=== PATIENT | female | born 1975 | race Caucasian/White ===

== ENCOUNTER 2017-01-27 16:00 | Emergency (ER) | payer OTHER ==
[~2017-01-27] VITALS: Ht 160 cm; Wt 86.3 kg
[2017-01-27 16:18] VITALS: BP 118/87
--- NOTE | 2017-01-27 16:38 | NUR ---
PT AMB TO BED 7
--- NOTE | 2017-01-27 16:38 | NUR ---
PATIENT AMBULATED TO BED 7 AT THIS TIME,
[2017-01-27] MEDS ORDERED: SUMAtriptan 6 MG/0.5 ML VIAL SUBQ ONE (16:45)
[2017-01-27] MEDS ORDERED: oxyCODONE/APAP 5/325 MG 1 TAB TAB PO ONE (16:45)
[2017-01-27] MEDS ORDERED: ONDANSETRON 4 MG ODT PO ONE (16:45)
--- NOTE | 2017-01-27 16:45 | NUR ---
PATIENT PRESENTS TO ED WITH C/O HEAD ACHE SINCE 01/23/17 WITH N/V; PER PT HEAVY PERIOD RESULTING IN LOW FE;HX OF MIGRAINES.SKIN IS PINK/WARM/DRY; AAOX4 WITH EVEN AND STEADY GAIT; LUNGS CLEAR BL; HR EVEN AND REGULAR; PT DENIES ANY FEVER, CP, SOB, OR COUGH AT THIS TIME; PATIENT STATES PAIN OF 10/10 AT THIS TIME; PATIENT POSITIONED FOR COMFORT; HOB ELEVATED; BEDRAILS UP X2; BED DOWN. ER MD MADE AWARE OF PT STATUS.
--- NOTE | 2017-01-27 17:04 | NUR ---
VERBAL ORDER OF 4 LPM VIA NC BY VO.
[2017-01-27] MEDS ORDERED: NACL 0.9% 1,000 ML IV ONE (17:05)
--- NOTE | 2017-01-27 17:35 | NUR ---
PT VERBALIZES DECREASE OF PAIN FROM HEADACHE FROM10/10 TO 0/10;NO MOANING/FACIAL GRIMMACING NOTED;WILL CONTINUE TO MONITOR PT.
[2017-01-27 18:54] VITALS: BP 122/74
--- NOTE | 2017-01-27 18:54 | NUR ---
Patient discharged with v/s stable. Written and verbal after care instructions given and explained. Patient alert, oriented and verbalized understanding of instructions. Ambulatory with steady gait. All questions addressed prior to discharge. ID band removed. Patient advised to follow up with PMD. Rx of FIORICET given. Patient educated on indication of medication including possible reaction and side effects. Opportunity to ask questions provided and answered.
== END 2017-01-27 18:54 | disposition home or self-care (01) ==
LOC: MED 16:00
DX: G44.209 Tension-type headache, unspecified, not intractable (principal); Z88.0 Allergy status to penicillin
CPT/HCPCS: 96360; 96372; 99284; J3030; J7030; S0119

== ENCOUNTER 2017-01-28 12:07 | Emergency (ER) | payer MEDICAID, OTHER ==
[~2017-01-28] VITALS: Ht 160 cm; Wt 86.4 kg
[2017-01-28 12:13] VITALS: BP 123/76
--- NOTE | 2017-01-28 12:33 | NUR ---
Patient taken from ED lobby to CT scan via wheelchair by adriano.
--- NOTE | 2017-01-28 13:01 | NUR ---
Patient ambulated to bed 5. RN evaluating patient at bedside.
--- NOTE | 2017-01-28 13:16 | NUR ---
41F BIB SELF C/O 03/24 LEFT SIDED HEADACHE X 5 DAYS; PATIENT DENIES ANY RECENT INJURIES TO HEAD; AAOX4 WITH EVEN AND STEADY GAIT; PERRLA BL EYES; PT SPEAKING IN FULL SENTENCES; LUNGS CLEAR BL; RR ARE EVEN AND UNLABORED; DENIES N/V/D; SKIN IS PINK/WARM/DRY; ; PT DENIES ANY CP OR SOB AT THIS TIME; VSS; PATIENT POSITIONED FOR COMFORT; HOB ELEVATED; BED DOWN; ER MD MADE AWARE OF PT STATUS; ALL NEEDS MET AT THIS TIME; WILL CONTINUE TO MONITOR
--- NOTE | 2017-01-28 13:22 | NUR ---
Dr. Chin evaluating patient at bedside.
[2017-01-28] MEDS ORDERED: NACL 0.9% 1,000 ML IV ONE (13:59)
[2017-01-28] MEDS ORDERED: diphenhydrAMINE 50 MG/ML VIAL IVP ONE (14:00)
[2017-01-28] MEDS ORDERED: METOCLOPRAMIDE 10 MG/2 ML INJ VIAL IVP ONE (14:00)
--- NOTE | 2017-01-28 15:02 | NUR ---
Patient appears to be resting comfortably in bed. Vital Signs within normal limits. Respirations even and unlabored.
[2017-01-28 15:51] VITALS: BP 117/72
--- NOTE | 2017-01-28 15:52 | NUR ---
Patient discharged with v/s stable. Written and verbal after care instructions given and explained. Patient alert, oriented and verbalized understanding of instructions. Ambulatory with steady gait. All questions addressed prior to discharge. ID band removed. Patient advised to follow up with PMD. Rx of [place] and Zofran given. Patient educated on indication of medication including possible reaction and side effects. Opportunity to ask questions provided and answered.
== END 2017-01-28 15:52 | disposition home or self-care (01) ==
LOC: MED 12:07
DX: R51 Headache (principal); R11.2 Nausea with vomiting, unspecified; Z88.0 Allergy status to penicillin
CPT/HCPCS: 70450; 81002; 81025; 96361; 96374; 96375; 99284; J1200; J2765; J7030

== ENCOUNTER 2018-09-02 12:45 | Emergency (ER) | payer OTHER ==
[~2018-09-02] VITALS: Ht 160 cm; Wt 89.4 kg
[2018-09-02 13:10] VITALS: BP 117/72
--- NOTE | 2018-09-02 14:14 | NUR ---
PT AMBULATES TO BED 3
--- NOTE | 2018-09-02 14:15 | NUR ---
PT BIB SELF C/O HEADACHE 10/10 FRONTAL REGION , AND N/V X 3 DAYS. ALERT AND ACTING APPROPRIATE, PUPILS 3 MM PERRLA. ABD SOFT, FLAT, NONTENDER, BOWEL SOUNDS X 4 QUADRANTS NORMOACTIVE. LBM TODAY. PT DENIES CP/SOB/FEVERS/CHILLS.
[2018-09-02] MEDS ORDERED: diphenhydrAMINE 50 MG/ML VIAL IM ONE (14:35)
[2018-09-02] MEDS ORDERED: MORPHINE SULFATE 4 MG/ML SYR IM ONE (14:35)
[2018-09-02] MEDS ORDERED: PROCHLORPERAZINE 10 MG/2 ML VIAL IM ONE (14:35)
[2018-09-02 15:50] VITALS: BP 135/72
--- NOTE | 2018-09-02 15:50 | NUR ---
Patient discharged with v/s stable. Written and verbal after care instructions given and explained. Patient alert, oriented and verbalized understanding of instructions. Ambulatory with steady gait. All questions addressed prior to discharge. ID band removed. Patient advised to follow up with PMD. Rx of RIZANTADINE given. Patient educated on indication of medication including possible reaction and side effects. Opportunity to ask questions provided and answered.
== END 2018-09-02 15:50 | disposition home or self-care (01) ==
LOC: MED 12:45
DX: G43.909 Migraine, unspecified, not intractable, without status migrainosus (principal); Z88.0 Allergy status to penicillin
CPT/HCPCS: 96372; 99283; J0780; J1200; J2270

== ENCOUNTER 2019-03-10 10:40 | Emergency (ER) | payer OTHER ==
[~2019-03-10] VITALS: Ht 162.6 cm; Wt 94.9 kg
[2019-03-10 11:01] VITALS: BP 119/77
[2019-03-10 12:29] LABS: BASOPHILS % (AUTO) 0.6 % (0.0-2.0); EOSINOPHILS # (AUTO) 0.1 K/uL (0-0.4); EOSINOPHILS % (AUTO) 2.5 % (0.0-4.0); HEMATOCRIT 34.3 % (36-48); HEMOGLOBIN 10.8 g/dL (12.0-16.0); LYMPHOCYTES # (AUTO) 1.8 K/uL (2.5-16.5); LYMPHOCYTES % (AUTO) 32.7 % (20.5-51.1); MEAN CORPUSCULAR HEMOGLOBIN 25 pg (27-31); MEAN CORPUSCULAR HGB CONC 31 g/dL (33-37); MONOCYTES # (AUTO) 0.3 K/uL (0.8-1.0); MONOCYTES % (AUTO) 5.6 % (1.7-9.3); NEUTROPHILS # (AUTO) 3.3 K/uL (1.8-7.7); NEUTROPHILS % (AUTO) 58.6 % (42.2-75.2); PLATELET COUNT (AUTO) 260 K/uL (140-450); RED BLOOD CELL COUNT(AUTO) 4.29 MIL/uL (4.20-5.40); RED CELL DISTRIBUTION WIDTH 16.6 % (11.6-13.7); WHITE BLOOD COUNT (AUTO) 5.6 K/uL (4.8-10.8)
[2019-03-10 12:31] LABS: APPEARANCE,URINE CLEAR (CLEAR); BILIRUBIN,URINE NEGATIVE (NEGATIVE); BLOOD, URINE 2+ (NEGATIVE); COLOR,URINE YELLOW (YELLOW); LEUKOCYTE ESTERASE ,URINE NEGATIVE (NEGATIVE); NITRITE, URINE NEGATIVE (NEGATIVE); UGLUCOSE NEGATIVE (NEGATIVE)
[2019-03-10 12:51] LABS: ANION GAP 13.8 (8-16); CARBON DIOXIDE 25.4 mmol/L (21-32); CREATININE 0.7 mg/dL (0.6-1.3); POTASSIUM 4.2 mmol/L (3.5-5.1)
[2019-03-10 12:57] LABS: ALBUMIN 3.7 g/dL (3.4-5.0); TOTAL BILIRUBIN 0.2 mg/dL (0.0-1.0)
[2019-03-10 13:03] LABS: RBC,URINE 0-5 /HPF (0-5); WBC,URINE NONE SEEN /HPF (0-5)
== END 2019-03-10 15:30 | disposition left against medical advice (07) ==
LOC: MED 10:40
DX: G43.909 Migraine, unspecified, not intractable, without status migrainosus (principal); H53.149 Visual discomfort, unspecified; R11.2 Nausea with vomiting, unspecified; Z53.21 Procedure and treatment not carried out due to patient leaving prior to being seen by health care provider
CPT/HCPCS: 36415; 80053; 81001; 81025; 85025; 99281